=== PATIENT | female | born 1980 | race Hispanic/Latino ===

== ENCOUNTER 2021-10-11 09:43 | Day surgery (SDC) | payer MEDICAID, OTHER ==
[2021-10-09 12:27] LABS: Basophils # (Auto) 0.1 K/mm3 (0.0-0.1); Basophils % (Auto) 1.3 % (0.0-1.8); Eosinophils # (Auto) 0.2 K/mm3 (0.0-0.4); Eosinophils % (Auto) 2.2 % (0.0-4.3); Hematocrit 43.6 % (30.3-42.9); Hemoglobin 14.4 gm/dl (10.1-14.3); Lymphocytes # (Auto) 3.1 K/mm3 (1.2-5.4); Lymphocytes % (Auto) 28.2 % (13.4-35.0); Mean Corpuscular HGB Conc 33 % (30-34); Mean Corpuscular Volume 88 fl (79-97); Monocytes % (Auto) 9.5 % (0.0-7.3); Platelet Count 239 K/mm3 (140-440); Red Blood Count 4.93 M/mm3 (3.65-5.03); Red Cell Distribution Width 14.4 % (13.2-15.2)
[2021-10-09 12:41] LABS: Blood Urea Nitrogen 13 mg/dL (7-17); Calcium 8.8 mg/dL (8.4-10.2); Hemolysis Index 76
[2021-10-09 13:05] LABS: BUN/Creatinine Ratio 22
--- NOTE | 2021-10-09 15:34 | Anesthesia Consultation ---
Anesthesia Consult and Med Hx Date of service: 10/11/21 - Airway Anesthetic Teeth Evaluation: Chipped (Broken) ROM Head & Neck: Adequate Mental/Hyoid Distance: Adequate Mallampati Class: Class I Intubation Access Assessment: Good - Pre-Operative Health Status ASA Pre-Surgery Classification: ASA3 Proposed Anesthetic Plan: General Nerve Block: TAP - Pulmonary Hx Smoking: Yes Hx Asthma: Yes SOB: Yes (Pt hoarse and states SOB due to "Allergies") COPD: No Hx Pneumonia: No - Cardiovascular System Hx Hypertension: Yes (on meds x11/2 mo, taken off 6 mos ago) - Central Nervous System Hx Psychiatric Problems: Yes (PTSD/Anxiety) - Endocrine Hx End Stage Renal Disease: No - Other Systems Hx Cancer: No Hx Obesity: Yes (BMI 55. Patient attributes much of this to the cyst.)
--- NOTE | 2021-10-11 07:56 | Short Stay Summary ---
Short Stay Documentation Date of service: 10/11/21 Narrative H&P: 41y/o with a history of chronic pelvic pain and recurrent ovarian cysts. The patient has had a prior left salpingoohorectomy for a large serous cystadenoma. She has elected to undergo definitive surgery with a robotic hysterectomy and USO. - History Principal diagnosis: chronic pelvic pain and ovarian cyst Past Medical History: hypertension, other (ovarian cyst; morbid obesity) Past Surgical History: , Other (exploratory laparotomy/LSO; D&C) Social history: single, smoking - Allergies and Medications Current Medications: Allergies acetaminophen [From Percocet] Allergy (Verified 10/06/21 10:47) Vomiting oxycodone [From Percocet] Allergy (Verified 10/06/21 10:47) Vomiting morphine Adverse Reaction (Verified 04/26/16 15:53) Itching Home Medications Medication Instructions Recorded Confirmed Last Taken Type Acetaminophen/Codeine [Tylenol 1 tab PO Q6H PRN 10/06/21 10/06/21 Unknown History /Codeine # 3 tab] clonazePAM [ Klonopin] 0.5 mg PO BID PRN 10/06/21 10/06/21 Unknown History Active Medications Acetaminophen (Acetaminophen 500 Mg Tab) 1,000 mg PO ONCE NR Stop: 10/11/21 20:00 Celecoxib (Celecoxib 200 Mg Cap) 400 mg PO PREOP NR Stop: 10/11/21 20:00 Fentanyl (Fentanyl 100 Mcg/2 Ml Inj) 100 mcg IV ONCE NR Stop: 10/11/21 20:00 Lactated Ringer's (Lactated Ringers) 1,000 mls @ 125 mls/hr IV DIRECT JHON Stop: 10/11/21 20:00 Magnesium Oxide (Magnesium Oxide 400 Mg Tab) 400 mg PO ONCE NR Stop: 10/11/21 20:00 Methocarbamol (Methocarbamol 750 Mg Tab) 1,500 mg PO ONCE NR Stop: 10/11/21 20:00 Midazolam HCl (Midazolam 2 Mg/2 Ml Inj) 2 mg IV PREOP NR Stop: 10/11/21 23:59 Scopolamine (Scopolamine Transdermal Patch 72 Hr) 1 each TD PREOP NR Stop: 10/11/21 20:00 - Physical exam General appearance: no acute distress Integumentary: no rash HEENT: Atraumatic Lungs: Clear to auscultation Breasts: deferred Heart: Regular rate Gastrointestinal: normal Female Genitourinary: deferred Rectal Exam: deferred - Brief post op/procedure progress note Date of procedure: 10/11/21 Pre-op diagnosis: Chronic pelvic pain; ovarian cyst Post-op diagnosis: same Procedure: Robotic hysterectomy right salpingo-oophorectomy lysis of adhesions Anesthesia: GETA Surgeon: EBER MOSES Estimated blood loss: 50-100ml Pathology: list (Uterus, cervix, right ovary and tube) Specimen disposition: to lab Condition: stable - Hospital course Hospital course: The patient was admitted the day of surgery underwent a robotic hysterectomy. Please see operative note for details of surgery. Postoperative course was uneventful. - Disposition Condition at discharge: Good Disposition: 01 HOME / SELF CARE / HOMELESS Short Stay Discharge Plan Activity: other (Pelvic rest for 6 weeks) Diet: regular Additional Instructions: Schedule follow-up with Dr. Moses in 4 weeks
[~2021-10-11 09:43] MED LIST: ACETAMINOPHEN 500 MG TAB PO NR; CELECOXIB 200 MG CAP PO NR; LACTATED RINGERS 1,000 ML IV SCH; MAGNESIUM OXIDE 400 MG TAB PO NR; MIDAZOLAM 2 MG/2 ML INJ IV NR; SCOPOLAMINE TRANSDERMAL PATCH 72 HR TD NR; fentaNYL 100 MCG/2 ML INJ IV NR
[2021-10-11] MEDS ORDERED: HYDROmorphone 0.5 MG/0.5 ML INJ IV PRN (10:06)
[2021-10-11] MEDS ORDERED: ONDANSETRON 4 MG/2 ML INJ IV PRN ×2 (10:06→14:19)
--- NOTE | 2021-10-11 10:06 | Anesthesia Day of Surgery ---
Anesthesia Day of Surgery - Day of Surgery Patient Examined: Yes Patient H&P Reviewed: Yes Patient is NPO: Yes
[2021-10-11] MEDS ORDERED: dexAMETHasone 4 MG/ML VIAL ONE (10:09)
[2021-10-11] MEDS ORDERED: BUPIVACAINE/PF (0.25%) 2.5 MG/ML 30 ML VIAL INFILTRATI ONE (10:09)
[2021-10-11] MEDS ORDERED: ROCURONIUM 50 MG/5 ML INJ IV ONE ×2 (10:38→14:01)
[2021-10-11] MEDS ORDERED: ONDANSETRON 4 MG/2 ML INJ ONE ×2 (10:38→13:34)
[2021-10-11] MEDS ORDERED: LIDOCAINE MPF (2%) 20 MG/1 ML VIAL 5 ML ONE (10:38)
[2021-10-11] MEDS ORDERED: HYDROmorphone 1 MG/1 ML INJ ONE (10:38)
[2021-10-11] MEDS ORDERED: propofoL 200 MG/20 ML VIAL IV ONE (10:38)
[2021-10-11] MEDS: MIDAZOLAM 2 MG/2 ML INJ IV PRN ×2 (11:05→11:08)
[2021-10-11] MEDS ORDERED: NEOMY 40 MG/POLYMYXIN B 200,000 UNITS/ML (GU) AMPULE IR ONE ×2 (12:35→13:12)
[2021-10-11] MEDS ORDERED: dexAMETHasone 20 MG/5 ML VIAL ONE (12:52)
[2021-10-11] MEDS ORDERED: PHENYLEPHRINE/NS 1,000 MCG/10 ML SYRINGE (OR USE) IV ONE (12:52)
[2021-10-11] MEDS ORDERED: SODIUM CHLORIDE 0.9% IRR 1,000 ML BOTTLE IR ONE (13:13)
[2021-10-11] MEDS ORDERED: SODIUM CHLORIDE 0.9% IRRIG SOLN 2000 ML IR ONE (13:13)
[2021-10-11] MEDS ORDERED: LACTATED RINGERS 1,000 ML ONE (13:39)
[2021-10-11] MEDS ORDERED: GLYCOPYRROLATE 0.4 MG/2 ML INJ ONE (13:41)
[2021-10-11] MEDS ORDERED: NEOSTIGMINE 10MG/10 ML INJ MDV ONE (13:41)
[2021-10-11] MEDS ORDERED: ALBUTEROL 8.5 GM MDI INHALATION IH ONE (13:52)
--- NOTE | 2021-10-11 14:10 | Operative Report ---
Operative Report Operative Report: Date of surgery: October 11, 2021 Preoperative diagnoses: Chronic pelvic pain; right ovarian cyst Postoperative diagnoses: Same as above Procedure: Robotic hysterectomy and right salpingo-oophorectomy; lysis of adhesions Surgeon: Sana Douglas M.D. Slip Cover Maker: Ottoniel Ferris Anesthesia: Gen. endotracheal anesthesia Estimated blood loss: 50 mL Pathology: Uterus, cervix, right tube and ovary Indication: 41-year-old -0-1-2 with a history of a right ovarian cyst and worsening chronic pelvic pain. The patient has a history of a prior left salpingo-oophorectomy for a large cystadenoma. She is elected to undergo definitive surgical management Procedure: The patient was taken to the operating room and given general endotracheal anesthesia without complication. She is prepped and draped in a normal sterile fashion. A bivalve speculum was placed in the patient's vagina and a single- tooth tenaculum placed on the anterior lip of the cervix. The uterus was sounded with the uterine sound. A stay suture was placed at 12 o'clock on the ectocervix. A ezeep care uterine manipulator was placed in the bivalve speculum was then removed. Attention was then turned to the patient's abdomen where a 12 millimeter supra umbilical skin incision was then made. A Veress needle was placed and peritoneal entry was verified water-filled syringe. Insufflation of the peritoneal cavity was performed with CO2 gas. The 12 mm trocar was then placed under direct visualization. An additional 8 mm trocar was placed on the patient's left and right lateral side just opposite of the supraumbilical trocar. An additional 5 mm right lateral trocar was then placed as the accessory port. The Wicho Shin device was used to close the fascia of the 12 mm incision. The patient was then placed in steep Trendelenburg. The da [place] robot was then engaged. A fenestrated forcep was placed in arm 2 and a v essel sealer was placed in arm 1. General survey of the abdomen and pelvis revealed findings of omental adhesions to the anterior abdominal wall. The left tube and ovary were surgically absent. The right adnexa had findings of a simple cyst. The surgeon then transferred to the surgical console. Lysis of adhesions were performed to release the omental adhesions from the anterior abdominal wall with the vessel sealer. The infundibulopelvic ligament was then isolated on the right. The vessel sealer was used to coagulate the ligament which was then transected. The tube and ovary were transected from the supply. The round ligament was then coagulated and transected also. The vesicouterine peritoneum was then entered from the patient's right side. The uterine vessels were then coagulated with the vessel sealer. The vessels were then transected . Attention was then turned to the patient's left side where the round ligament was again isolated coagulated and transected. The vesical peritoneum was then entered from the left and joined in the midline. Peritoneum was reflected off of the lower uterine segment. Uterine vessels were then coagulated and then transected. The blood supply to the uterus was adequately contained, a posterior colpotomy was made. The V care ring was visualized. Posterior colpotomy was created with the monopolar scissors. The incision was continued circumferentially until anterior colpotomy was made. The cervix and uterus were amputated from the vaginal cuff. The uterus was then removed along with the tube and ovary through the vagina and a warm laparotomy sponge was placed and maintain the pneumoperitoneum. The vaginal cuff was then closed in a running fashion with V lock suture. Irrigation of the pelvis was performed. Surgicel was applied to the incision. The skin was then reapproximated with 4-0 Monocryl. The tissue was sent to pathology which included the cervix, uterus, tubes and ovaries. The patient was then successfully extubated. She was then taken to the recovery room in stable condition. All sponge laps and needle counts were correct x2.
[2021-10-11] MEDS: HYDROmorphone 0.5 MG/0.5 ML INJ IV PRN ×2 (14:23→14:42)
[2021-10-11 15:47] VITALS: BP 118/71
--- NOTE | 2021-10-11 19:13 | Post Anesthesia Evaluation ---
- Post Anesthesia Evaluation Patient Participated: Yes Airway Patent: Yes Stable Respiratory Function: Yes Nausea/Vomiting: No Temp > 96.8F: Yes Pain Manageable: Yes Adequeate Hydration: Yes Anesthesia Complications: No Block Receding Appropriately: Yes Patient on Ventilator: No
== END 2021-10-11 16:40 | disposition home or self-care (01) ==
LOC: OR 09:43
PROVIDERS: ATTEND Obstetrics & Gynecology
DX: R10.2 Pelvic and perineal pain (principal); N83.201 Unspecified ovarian cyst, right side; Z20.822 Contact with and (suspected) exposure to COVID-19; F17.210 Nicotine dependence, cigarettes, uncomplicated; Z88.8 Allergy status to other drugs, medicaments and biological substances; Z88.5 Allergy status to narcotic agent; Z79.899 Other long term (current) drug therapy; E66.01 Morbid (severe) obesity due to excess calories; G43.909 Migraine, unspecified, not intractable, without status migrainosus; I10 Essential (primary) hypertension; J45.909 Unspecified asthma, uncomplicated; E66.9 Obesity, unspecified; Z98.891 History of uterine scar from previous surgery; F32.9 Major depressive disorder, single episode, unspecified; F41.9 Anxiety disorder, unspecified; Z98.890 Other specified postprocedural states
CPT/HCPCS: 36415; 58552; 64488; 80048; 81025; 85025; 86850; 86900; 86901; 88307; J0690; J1100; J1170; J1815; J2250; J2370; J2405; J2704; J2710; J3010; J3490; J7120; S2900; U0003; 64450